=== PATIENT | male | born 1985 | race Caucasian/White ===

== ENCOUNTER 2024-07-04 18:19 | Emergency (ER) | payer OTHER ==
--- NOTE | 2024-07-04 19:20 | ED ---
Male Urogenital HPI - General Chief complaint: Urogenital Stated complaint: hernia on groin Time Seen by Provider: 07/04/24 19:04 Source: patient, RN notes reviewed Mode of arrival: ambulatory Limitations: no limitations - History of Present Illness Initial comments: 39-year-old male presents emergency department complaint of right inguinal hernia. Patient states that pain has been increasing does wax and wane. 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 He states has never had this evaluated. Patient states that he normally can get it to slide back in but states he cannot get it slide back in at this time. Patient has any fevers or chills. No dysuria no other associated symptoms. - Related Data Allergies Allergy/AdvReac Type Severity Reaction Status Date / Time No Known Allergies Allergy Verified 07/04/24 18:36 Review of Systems ROS Statement: Those systems with pertinent positive or pertinent negative responses have been documented in the HPI. ROS Other: All systems not noted in ROS Statement are negative. Past Medical History Past Medical History: No Reported History Past Surgical History: No Surgical Hx Reported Smoking Status: Current every day smoker Past Alcohol Use History: Daily, Heavy Past Drug Use History: Marijuana General Exam Limitations: no limitations General appearance: alert, in no apparent distress Head exam: Present: atraumatic, normocephalic, normal inspection Eye exam: Present: normal appearance, PERRL, EOMI. Absent: scleral icterus, conjunctival injection, periorbital swelling ENT exam: Present: normal exam, mucous membranes moist Neck exam: Present: normal inspection. Absent: tenderness, meningismus, lymphadenopathy Respiratory exam: Present: normal lung sounds bilaterally. Absent: respiratory distress, wheezes, rales, rhonchi, stridor Cardiovascular Exam: Present: regular rate, normal rhythm, normal heart sounds. Absent: systolic murmur, diastolic murmur, rubs, gallop, clicks GI/Abdominal exam: Present: soft, normal bowel sounds, hernia (Large right inguinal hernia). Absent: distended, tenderness, guarding, rebound, rigid Skin exam: Present: warm, dry, intact, normal color. Absent: rash Course Vital Signs 07/04/24 18:36 Temperature 99.2 F Pulse Rate 83 Respiratory 22 Rate Blood Pressure 142/93 O2 Sat by Pulse 99 Oximetry Medical Decision Making - Medical Decision Making Was pt. sent in by a medical professional or institution (DEEDEE Ansari, CONTRACT PREPARER, urgent care, hospital, or group home...) When possible be specific @ -No Did you speak to anyone other than the patient for history (EMS, parent, family, police, friend...)? What history was obtained from this source @ -No Did you review nursing and triage notes (agree or disagree)? Why? @ -I reviewed and agree with nursing and triage notes Were old charts reviewed (outside hosp., previous admission, EMS record, old EKG, old radiological studies, urgent care reports/EKG's, group home records)? Report findings @ -No old charts were reviewed Differential Diagnosis (chest pain, altered mental status, abdominal pain women, abdominal pain men, vaginal bleeding, weakness, fever, dyspnea, syncope, heada ton, dizziness, GI bleed, back pain, seizure, CVA, palpatations, mental health, musculoskeletal)? @ -Differential Abdominal Pain Men: Appendicitis, cholecystitis, diverticulosis, ischemic bowel, pancreatitis, hepatitis, UTI, gastroenteritis, AAA, incarcerated hernia, bowel obstruction, constipation, inflammatory bowel, hepatitis, peptic ulcer disease, splenic infarction, perforated viscus, testicular torsion, this is not meant to be an all-inclusive list EKG interpreted by me (3pts min.). @ -None X-rays interpreted by me (1pt min.). @ -None done CT interpreted by me (1pt min.). @ -CT abdomen pelvis showing large right fat-containing inguinal hernia on the right no bowel, questionable ileus U/S interpreted by me (1pt. min.). @ -None done What testing was considered but not performed or refused? (CT, X-rays, U/S, labs)? Why? @ -None What meds were considered but not given or refused? Why? @ -None Did you discuss the management of the patient with other professionals (professionals i.e. DEEDEE Ansari, CONTRACT PREPARER, lab, RT, psych nurse, social service assistant, recruiter coordinator, teacher, chief growth officer, telephonic case manager)? Give summary @ -[Discussed the case with Dr. Gillespie on-call surgeon recommends patient to be discharged and follow-up in office tomorrow patient stable for discharge. Was smoking cessation discussed for >3mins.? @ -No Was critical care preformed (if so, how long)? @ -No Were there social determinants of health that impacted care today? How? (Homelessness, low income, unemployed, alcoholism, drug addiction, transportation, low edu. Level, literacy, decrease access to med. care, fdc, rehab)? @ -No Was there de-escalation of care discussed even if they declined (Discuss DNR or withdrawal of care, Hospice)? DNR status @ -No What co-morbidities impacted this encounter? (DM, HTN, Smoking, COPD, CAD, Cancer, CVA, ARF, Chemo, Hep., AIDS, mental health diagnosis, sleep apnea, morbid obesity)? @ -None Was patient admitted / discharged? Hospital course, mention meds given and route, prescriptions, significant lab abnormalities, going to OR and other pertinent info. @Discharge patient is to follow-up tomorrow in office with surgeon. Patient has no bowel containing hernia patient does not have obvious signs for obstruction and feels comfortable discharge and close follow-up return parameters roly. Undiagnosed new problem with uncertain prognosis? @ -No Drug Therapy requiring intensive monitoring for toxicity (Heparin, Nitro, Insulin, Cardizem)? @ -No Were any procedures done? @ -No Diagnosis/symptom? @ -Inguinal hernia right Acute, or Chronic, or Acute on Chronic? @ -Acute Uncomplicated (without systemic symptoms) or Complicated (systemic symptoms)? @ -Uncomplicated Side effects of treatment? @ -No Exacerbation, Progression, or Severe Exacerbation? @ -No Poses a threat to life or bodily function? How? (Chest pain, USA, NM, pneumonia, PE, COPD, DKA, ARF, appy, cholecystitis, CVA, Diverticulitis, Homicidal, Suicidal, threat to staff... and all critical care pts) @ -No - Lab Data Result diagrams: 07/04/24 19:26 07/04/24 19:26 Lab Results 07/04/24 07/04/24 07/04/24 Range/Units 19:26 19:26 19:26 WBC 13.0 H (3.8-10.6) k/uL RBC 5.18 (4.30-5.90) m/uL Hgb 15.6 (13.0-17.5) gm/dL Hct 46.2 (39.0-53.0) % MCV 89.2 (80.0-100.0) fL MCH 30.1 (25.0-35.0) pg MCHC 33.7 (31.0-37.0) g/dL RDW 12.7 (11.5-15.5) % Plt Count 290 (150-450) k/uL MPV 7.5 Neutrophils % 78 % Lymphocytes % 13 % Monocytes % 6 % Eosinophils % 1 % Basophils % 0 % Neutrophils # 10.2 H (1.3-7.7) k/uL Lymphocytes # 1.7 (1.0-4.8) k/uL Monocytes # 0.8 (0-1.0) k/uL Eosinophils # 0.1 (0-0.7) k/uL Basophils # 0.1 (0-0.2) k/uL Sodium 137 (137-145) mmol/L Potassium 4.3 (3.5-5.1) mmol/L Chloride 104 (98-107) mmol/L Carbon Dioxide 22 (22-30) mmol/L Anion Gap 11 mmol/L BUN 18 (9-20) mg/dL Creatinine 0.99 (0.66-1.25) mg/dL Est GFR (CKD-EPI)AfAm >90 (>60 ml/min/1.73 sqM) Est GFR (CKD-EPI)NonAf >90 (>60 ml/min/1.73 sqM) Glucose 92 (74-99) mg/dL Plasma Lactic Acid Gideon 1.6 (0.7-2.0) mmol/L Calcium 9.8 (8.4-10.2) mg/dL Total Bilirubin 0.7 (0.2-1.3) mg/dL AST 54 (17-59) U/L ALT 136 H (4-49) U/L Alkaline Phosphatase 85 (38-126) U/L Total Protein 7.6 (6.3-8.2) g/dL Albumin 5.2 H (3.5-5.0) g/dL Disposition Clinical Impression: Inguinal hernia Disposition: HOME SELF-CARE Condition: Stable Instructions (If sedation given, give patient instructions): Inguinal Hernia (ED) Additional Instructions: Please contact surgeon in the morning and follow-up at 1 PM as directed. Please return to the Emergency Department if symptoms worsen or any other concerns. Is patient prescribed a controlled substance at d/c from ED?: No Referrals: Tyrel Gillespie MD [STAFF PHYSICIAN] - 1-2 days Time of Disposition: 21:29
[2024-07-04] MEDS: HYDROmorphone 1 MG/ML 1 ML SYRINGE IVP STA (19:27)
[2024-07-04] MEDS: ONDANSETRON 4 MG/2 ML VIAL IVP STA (19:27)
[2024-07-04 19:46] LABS: Basophils # (A) 0.1 k/uL (0-0.2); Basophils % (A) 0 %; Eosinophils # (A) 0.1 k/uL (0-0.7); Eosinophils % (A) 1 %; HCT 46.2 % (39.0-53.0); HGB 15.6 gm/dL (13.0-17.5); Lymphocytes # (A) 1.7 k/uL (1.0-4.8); Lymphocytes % (A) 13 %; MCH 30.1 pg (25.0-35.0); MCHC 33.7 g/dL (31.0-37.0); MCV 89.2 fL (80.0-100.0); Mean Platelet Volume 7.5; Monocytes # (A) 0.8 k/uL (0-1.0); Monocytes % (A) 6 %; Neutrophils # (A) 10.2 k/uL (1.3-7.7); Neutrophils % (A) 78 %; Platelet Count 290 k/uL (150-450); RBC 5.18 m/uL (4.30-5.90); RDW 12.7 % (11.5-15.5)
[2024-07-04 20:01] LABS: ALT 136 U/L (4-49); AST 54 U/L (17-59); African American GFR (CKD) >90 (>60 ml/min/1.73 sqM); Albumin 5.2 g/dL (3.5-5.0); Alkaline Phosphatase 85 U/L (38-126); Anion Gap 11 mmol/L; Blood Urea Nitrogen 18 mg/dL (9-20); Calcium 9.8 mg/dL (8.4-10.2); Carbon Dioxide 22 mmol/L (22-30); Chloride 104 mmol/L (98-107); Glucose 92 mg/dL (74-99); Non-African American GFR(CKD) >90 (>60 ml/min/1.73 sqM); Potassium 4.3 mmol/L (3.5-5.1); Sodium 137 mmol/L (137-145); Total Bilirubin 0.7 mg/dL (0.2-1.3); Total Protein 7.6 g/dL (6.3-8.2)
[2024-07-04] MEDS: KETOROLAC 15 MG/ML 1 ML VIAL IVP STA (20:42)
[2024-07-04] MEDS: HYDROmorphone 0.5 MG/0.5 ML SYRINGE IVP STA (20:43)
--- NOTE | 2024-07-04 20:43 | CT ---
INDICATION: Patient age:Male; 39 years old; Reason for study: hernia right, pain; PHH. COMPARISON: None. TECHNIQUE: Standard CT of the abdomen and pelvis following the administration of 100 cc of Isovue 3 00 IV contrast material. Coronal and sagittal reformats were performed. One or more CT dose reduction strategies were utilized during this examination. Total DLP administered was 918.6 mGycm. FINDINGS: LOWER CHEST: Unremarkable ABDOMEN LIVER: Unremarkable. GALLBLADDER AND BILE DUCTS: Unremarkable. PANCREAS: Unremarkable. SPLEEN: Unremarkable. ADRENAL GLANDS: Unremarkable. KIDNEYS AND URETERS: No evidence of hydronephrosis or renal calculus. The ureters are unremarkable. PELVIS URINARY BLADDER: Incompletely distended but grossly unremarkable. REPRODUCTIVE: Unremarkable. ABDOMEN & PELVIS STOMACH AND BOWEL: Stomach is grossly unremarkable. There is a dilated loop of small bowel seen in th e mid abdomen measuring up to 3.1 cm. There is no discrete transition point seen at this time.The angel endix is visualized and appears within normal limits. PERITONEUM: No evidence of pneumoperitoneum or free fluid. VASCULATURE: Unremarkable MUSCULOSKELETAL: No acute osseous abnormalities LYMPH NODES: Unremarkable. SOFT TISSUE/ABDOMINAL WALL: There is a large fat filled right inguinal hernia. The wall defect associ ated with the hernia is difficult to delineate but measures at least 2.1 cm. There is an additional s mall left fat filled inguinal hernia. Tiny umbilical fat filled hernia. IMPRESSION: 1. Fat filled large right inguinal hernia with additional small left fat filled inguinal hernia. 2. Dilated loop of small bowel within the mid abdomen with no discrete transition point at this time. Findings are concerning for developing ileus versus small bowel obstruction. Close clinical follow-u p is recommended. [facility], , 07/04/2024 8:41 PM
[2024-07-04] MEDS: IBUPROFEN 600 MG STARTER PACK 4 TAB BTL PO STA (21:49)
[2024-07-04 21:54] VITALS: BP 138/86; PULSE 86; RESP 16; TEMP 98.9
== END 2024-07-04 21:53 | disposition home or self-care (01) ==
LOC: EC 18:19
DX: K40.90 Unilateral inguinal hernia, without obstruction or gangrene, not specified as recurrent (principal); F17.200 Nicotine dependence, unspecified, uncomplicated
CPT/HCPCS: 36415; 80053; 83605; 85025; 74177; 99284; 96374; 96375 ×2; 96376; J2405; J1171 ×2; J1885

== ENCOUNTER → 2024-07-08 | Outpatient (CLI) | payer OTHER ==
[2024-07-08 18:32] LABS: Basophils # (A) 0.07 X 10*3/uL (0.00-0.10); Basophils % (A) 0.8 %; Eosinophils # (A) 0.14 X 10*3/uL (0.04-0.35); Eosinophils % (A) 1.5 %; HCT 46.8 % (39.6-50.0); Lymphocytes # (A) 1.64 X 10*3/uL (0.90-5.00); Lymphocytes % (A) 17.8 %; MCH 28.7 pg (27.0-32.0); MCHC 32.1 g/dL (32.0-37.0); MCV 89.7 FL (80.0-97.0); Mean Platelet Volume 10.5 FL (9.5-12.2); Monocytes # (A) 0.63 X 10*3/uL (0.20-1.00); Monocytes % (A) 6.9 %; NRBC Per 100 WBC 0 X 10*3/uL (0.00-0.01); Neutrophils # (A) 6.63 X 10*3/uL (1.80-7.70); Neutrophils % (A) 72.1 %; Platelet Count 308 X 10*3/uL (140-440); RBC 5.22 X 10*6/uL (4.40-5.60); RDW 12.9 % (11.5-14.5); WBC 9.19 X 10*3/uL (4.50-10.00)
== END | disposition home or self-care (01) ==
LOC: LABPAT 15:29
PROVIDERS: ATTEND Surgery
DX: Z01.818 Encounter for other preprocedural examination (principal); K40.90 Unilateral inguinal hernia, without obstruction or gangrene, not specified as recurrent
CPT/HCPCS: 85025; 86850; 86900; 86901; 93005

== ENCOUNTER 2024-07-13 11:19 | Day surgery (SDC) | payer OTHER ==
[~2024-07-13 11:19] MED LIST: HYDROmorphone 0.5 MG/0.5 ML SYRINGE IVP PRN
[2024-07-13] MEDS: LACTATED RINGERS 1,000 ML IV SCH (12:15)
[2024-07-13] MEDS: IV FLUID CONTINUATION 1,000 ML IV ONE ×2 (12:15→16:40)
[2024-07-13] MEDS: ACETAMINOPHEN TAB 500 MG TAB PO PRN (12:22)
[2024-07-13] MEDS: DEXAMETHASONE SOD PHOSPHATE 4 MG/ML 1 ML VIAL IV ONE (12:23)
[2024-07-13] MEDS: ONDANSETRON 4 MG/2 ML VIAL IVP ONE (12:23)
[2024-07-13] MEDS: MIDAZOLAM 2 MG/2 ML VIAL IV ONE (13:12)
[2024-07-13] MEDS: fentaNYL (PF) 50 MCG/ML 2 ML AMP IVP PRN (13:12)
[2024-07-13] MEDS: HEPARIN SODIUM,PORCINE 5,000 UNIT/ML 1 ML VIAL SQ PRN (13:35)
--- NOTE | 2024-07-13 13:46 | P.ANPRN ---
Procedure Note - Anesthesia - Nerve Block Performed Bilateral Erector Spinae Single Time Out Performed: Yes Date of Procedure: 07/13/24 Procedure Start Time: 13:11 Procedure Stop Time: 13:20 Location of Patient: PreOp Indication: Acute Post-Operative Pain, Requested by Surgeon Sedation Type: Sedate with meaningful contact maintained Preparation: Sterile Prep Position: Prone Needle Types: Pajunk Needle Gauge: 21 Ultrasound used to visualize needle placement: Yes Ultrasound used to observe medication spread: Yes Injectate: 0.5% Ropivacaine (see comment for volume) (20 ml + 10 ml NS + 4mg Dexamethasone per side) Blood Aspirated: No Pain Paresthesia on Injection Noted: No Resistance on Injection: Normal Image Stored and Saved: Yes Events: Uneventful and Well Tolerated
[2024-07-13] MEDS: LIDOCAINE 1%-EPI 1:100,000 20 ML VIAL SQ ONE ×3 (13:56→14:21)
[2024-07-13] MEDS ORDERED: KETOROLAC 15 MG/ML 1 ML VIAL ONE (13:59)
[2024-07-13] MEDS ORDERED: MIDAZOLAM 2 MG/2 ML VIAL ONE (13:59)
[2024-07-13] MEDS ORDERED: LIDOCAINE 1% INJ 10MG/ML (20 ML MDV) ONE (13:59)
[2024-07-13] MEDS ORDERED: ROCURONIUM 10 MG/ML (5 ML VIAL) IV ONE (13:59)
[2024-07-13] MEDS ORDERED: SODIUM CHLORIDE 0.9% (PF) 10 ML VIAL ONE (13:59)
[2024-07-13] MEDS ORDERED: DEXAMETHASONE SOD PHOSPHATE 4 MG/ML 1 ML VIAL ONE (13:59)
[2024-07-13] MEDS ORDERED: HYDROmorphone (PF) 1 MG/ML ONE (13:59)
[2024-07-13] MEDS ORDERED: ROPIVACAINE 5 MG/ML 30 ML VIAL ONE (13:59)
[2024-07-13] MEDS ORDERED: NEOSTIGMINE 1 MG/ML 10 ML VIAL ONE (13:59)
[2024-07-13] MEDS ORDERED: SUCCINYLCHOLINE CHLORIDE 200 MG/10 ML VIAL IV ONE (13:59)
[2024-07-13] MEDS ORDERED: KETAMINE HCL IN 0.9 % NACL 50 MG/5 ML SYRINGE ONE (13:59)
[2024-07-13] MEDS ORDERED: PROPOFOL 10 MG/ML 20 ML VIAL IV ONE (13:59)
[2024-07-13] MEDS ORDERED: GLYCOPYRROLATE 0.2 MG/ML 2 ML VIAL ONE (13:59)
[2024-07-13] MEDS ORDERED: fentaNYL (PF) 50 MCG/ML 2 ML AMP ONE (13:59)
[2024-07-13] MEDS ORDERED: LIDOCAINE 4% LTA KIT (4 ML) TOPICAL ONE (13:59)
[2024-07-13] MEDS: LACTATED RINGERS 1,000 ML IV ONE (15:01)
[2024-07-13 15:23] VITALS: TEMP 97.2
--- NOTE | 2024-07-13 15:37 | P.OP ---
Date of Procedure: 07/13/24 Preoperative Diagnosis: Bilateral inguinal hernias Postoperative Diagnosis: Left inguinal hernia Incarcerated right femoral hernia Procedure(s) Performed: Laparoscopic robot-assisted pair of left inguinal hernia Open repair of right femoral hernia Partial omentectomy Anesthesia: JACKSON Surgeon: Tyrel Gillespie Estimated Blood Loss (ml): 5 Pathology: other (Incarcerated omentum) Condition: stable Disposition: PACU Description of Procedure: the patient's placed on the operating table in the supine position. The patient received general anesthesia. The patient's abdomen was prepped and draped in usual sterile fashion. The skin was anesthetized 1% local Xylocaine at the in cision sites. Using an 11 blade a skin incision was made at the umbilicus. The fascia was grasped with a Cesilia and then the peritoneal cavity was entered with the Veress needle. Position of the Veress needle was confirmed with a positive drop test. After adequate insufflation a 5 mm trocar was placed into the peritoneal cavity. The Laparoscope was placed the peritoneal cavity. And a robotic 8 mm trocar was placed in the right lateral position and then another 8 mm robotic trochars placed in the left lateral position. The original 5 mm trocar was exchanged for a 12 mm trocar. The patient was placed in reverse Trendelenburg and then the patient was docked to the robot. A four-quadrant transversus abdominis plane block was performed 1% local Xylocaine. The right inguinal hernia was inspected. The incarcerated mentum was attempted to be withdrawn from the hernia. A portion of the omentum was reduced. However due to the large size of the incarcerated hernia the remaining omentum could not be reduced. At this point decided to perform an open repair on the right hernia. Next over the left inguinal hernia, Next the peritoneum over top of the hernia was incised and then using blunt and sharp dissection and electrocautery the hernia sac was dissected free from the floor of the inguinal canal. The hernia sac was completely reduced into the peritoneal cavity. And then using the [employer] licensing services clerk mesh the hernia was repaired. The peritoneum was then sutured with 20V lock suture. The patient was then undocked the robot. The needle was withdrawn from the peritoneal cavity. The umbilical trocar site was closed with 0 Ethibond suture. The skin was closed interrupted 3-0 Monocryl suture. D A skin incision was made over the right groin. Then using blunt subsection letter cautery subcu tissue were divided off the fascia. And then the hernia sac was dissected free. The patient appeared to have a femoral hernia. The incarcerated omentum measured approxi-15 cm diameter. This was unable to be reduced. The hernia sac was then dissected electrocautery. And then the omentum was transected between Nikkie clamps and ligated with 0 silk ties. The femoral canal was then closed using a mushroom plug Prolene mesh plug. This was secured with 2-0 Prolene suture. The remaining femoral space was closed with 0 Ethibond suture. Mamadou's fascia closed with 2-0 Vicryl suture. Drake were "were used to close the skin. Patient tolerated well he was sent to recovery in stable condition.
[2024-07-13 19:34] VITALS: BP 141/69; PULSE 91; RESP 14
== END 2024-07-13 17:37 | disposition home or self-care (01) ==
LOC: OR 11:19
PROVIDERS: ATTEND Surgery
DX: K40.90 Unilateral inguinal hernia, without obstruction or gangrene, not specified as recurrent (principal); K41.30 Unilateral femoral hernia, with obstruction, without gangrene, not specified as recurrent; G89.18 Other acute postprocedural pain; F90.9 Attention-deficit hyperactivity disorder, unspecified type; F17.290 Nicotine dependence, other tobacco product, uncomplicated
CPT/HCPCS: 49553; 49650; S2900; 64999